=== PATIENT | female | born 1960 | race Caucasian/White ===

== ENCOUNTER 2019-12-19 19:09 | Observation (INO) | payer OTHER ==
[~2019-12-19] VITALS: Ht 172.7 cm; Wt 58.9 kg
[~2019-12-19 19:09] MED LIST: Macrodantin100 MG PO
[2019-12-19 19:52] LABS: BASOPHILS ABSOLUTE AUTO 0.02 K/mm3 (0.00-0.23); BASOPHILS PERCENT AUTO 0 % (0-2); EOSINOPHILS ABSOLUTE AUTO 0.02 K/mm3 (0.00-0.68); EOSINOPHILS PERCENT AUTO 0 % (0-6); Hematocrit 51.1 % (33.0-51.0); Hemoglobin 18.2 g/dL (11.5-16.0); IMMATURE GRAN ABSOLUTE AUTO 0.02 K/mm3 (0.00-0.10); IMMATURE GRAN PERCENT AUTO 0 % (0-1); LYMPHOCYTES ABSOLUTE AUTO 0.86 K/mm3 (0.84-5.20); LYMPHOCYTES PERCENT AUTO 12 % (21-46); MONOCYTES PERCENT AUTO 6 % (4-13); Mean Corpuscular HGB 33.8 pg (26.0-34.0); Mean Corpuscular HGB Conc 35.6 g/dL (31.5-36.5); Mean Corpuscular Volume 95 fL (80-100); Mean Platelet Volume 9.9 fL (9.1-12.4); NEUTROPHILS PERCENT AUTO 82 % (41-73); Platelet Count 289 K/mm3 (150-400); RDW Coefficient Variation 11.9 % (11.7-14.2); RDW Standard Deviation 42.3 fL (35.1-46.3); Red Blood Cell Count 5.39 M/mm3 (3.80-5.20); White Blood Cell Count 7.22 K/mm3 (4.00-11.30)
[2019-12-19 20:12] LABS: Alanine Aminotransfer (ALT/SGP 114 U/L (12-78); Alk Phos 93 U/L (50-136); Anion Gap 11 mmol/L (6-16); Aspartate Aminotrans (AST/SGOT 52 U/L (12-37); Bilirubin, Total 0.5 mg/dL (0.1-1.0); Blood Urea Nitrogen 21 mg/dL (8-24); Bun/Creatinine Ratio 50.5 (12.0-20.0); CO2, Blood 25 mmol/L (21-32); Calcium, Blood 9.8 mg/dL (8.5-10.1); Chloride, Blood 99 mmol/L (98-108); Creatinine, Blood 0.42 mg/dL (0.40-1.00); Globulin, Blood 4.1 g/dL (2.2-4.0); Glomerular Filtration Rate >60 (60-); Glucose, Blood 156 mg/dL (70-99); Potassium, Blood 2.8 mmol/L (3.5-5.5); Sodium, Blood 135 mmol/L (136-145); Total Protein, Blood 8.1 g/dL (6.4-8.2)
[2019-12-19 23:52] LABS: Source, Urine Catheter
[2019-12-19 23:57] LABS: Bilirubin, Urine Neg (Neg); Blood, Urine 1+ (Neg); Glucose Qualitative, Urine Neg (Neg); Ketones, Urine 4+ (Neg); Leukocyte Esterase, Urine 3+ (Neg); Nitrite, Urine Neg (Neg); Protein, Urine 2+ (Neg); Specific Gravity, Urine 1.025 (1.003-1.022); Urobilinogen, Urine NORM (Normal)
[2019-12-20 00:17] LABS: Appearance, Urine Hazy (Clear); Color, Urine Amber (P-Yellow)
[2019-12-20 00:18] LABS: Amorphous Light (0-Heavy); Bacteria Mod /hpf; Mucus Mod (0-Heavy); Squamous Epithelial Cells Mod /hpf (Few); White Blood Cells, Urine 25-50 /hpf (0-5)
[2019-12-20 01:07] LABS: Ethanol (Alcohol), Blood, Med <3 mg/dL; Magnesium, Blood 2.2 mg/dL (1.6-2.4); Salicylate 3.7 mg/dL (2.8-20.0)
[2019-12-20 01:23] LABS: Acetaminophen, Random <2.0 ug/mL (10.0-30.0)
--- NOTE | 2019-12-20 03:19 | NUR ---
Patient arrived via stretcher to room 330. Pt is able to follow commands and is calm and cooperative. Pt is oriented to self, did figure out she was in a hospital. Pt knows names of her children. Pt did not know month or year. Unable to answer health question with certainity. Pt assessment is otherwise negative. Bed alarm is on, IV fluids are as ordered. Pt is sleepy due to Ativan in ED, and previous encephalapathy. Oriented to call light and room. Will monitor closely.
[2019-12-20 05:09] LABS: BASOPHILS ABSOLUTE AUTO 0.02 K/mm3 (0.00-0.23); BASOPHILS PERCENT AUTO 0 % (0-2); EOSINOPHILS ABSOLUTE AUTO 0.03 K/mm3 (0.00-0.68); EOSINOPHILS PERCENT AUTO 1 % (0-6); Hematocrit 46.1 % (33.0-51.0); Hemoglobin 16.2 g/dL (11.5-16.0); IMMATURE GRAN ABSOLUTE AUTO 0.02 K/mm3 (0.00-0.10); IMMATURE GRAN PERCENT AUTO 0 % (0-1); LYMPHOCYTES ABSOLUTE AUTO 0.97 K/mm3 (0.84-5.20); LYMPHOCYTES PERCENT AUTO 15 % (21-46); MONOCYTES ABSOLUTE AUTO 0.61 K/mm3 (0.16-1.47); MONOCYTES PERCENT AUTO 9 % (4-13); Mean Corpuscular HGB 33.9 pg (26.0-34.0); Mean Corpuscular HGB Conc 35.1 g/dL (31.5-36.5); Mean Corpuscular Volume 96 fL (80-100); NEUTROPHILS ABSOLUTE AUTO 4.82 K/mm3 (1.96-9.15); NEUTROPHILS PERCENT AUTO 75 % (41-73); Platelet Count 241 K/mm3 (150-400); RDW Coefficient Variation 11.9 % (11.7-14.2); RDW Standard Deviation 42.6 fL (35.1-46.3); Red Blood Cell Count 4.78 M/mm3 (3.80-5.20); White Blood Cell Count 6.47 K/mm3 (4.00-11.30)
[2019-12-20 05:32] LABS: Alanine Aminotransfer (ALT/SGP 93 U/L (12-78); Albumin, Blood 3.4 g/dL (3.4-5.0); Albumin/Globulin Ratio 0.9 (0.8-1.8); Alk Phos 82 U/L (50-136); Anion Gap 6 mmol/L (6-16); Aspartate Aminotrans (AST/SGOT 44 U/L (12-37); Bilirubin, Total 0.3 mg/dL (0.1-1.0); Blood Urea Nitrogen 19 mg/dL (8-24); Bun/Creatinine Ratio 39.9 (12.0-20.0); CO2, Blood 26 mmol/L (21-32); Chloride, Blood 107 mmol/L (98-108); Creatinine, Blood 0.48 mg/dL (0.40-1.00); Globulin, Blood 3.9 g/dL (2.2-4.0); Glomerular Filtration Rate >60 (60-); Glucose, Blood 85 mg/dL (70-99); Potassium, Blood 3.6 mmol/L (3.5-5.5); Sodium, Blood 139 mmol/L (136-145); Total Protein, Blood 7.3 g/dL (6.4-8.2)
--- NOTE | 2019-12-20 10:23 | NUR ---
PER PATIENT CAN TALK TO DAUGHTER, BETH.
--- NOTE | 2019-12-20 15:29 | NUR ---
ALERT TO; SELF, TOWN,& FIRST WEEK OF . DOES NOT KNOW; WHY HERE, HOW SHE GOT HERE, OR THAT SHE IS IN HOSPITAL.
--- NOTE | 2019-12-20 15:56 | NUR ---
ALERT TO SELF. JUST SENT URINE SAMPLE. PER DAUGHTER, BETH, PT HAS NOT HAD ANY ETOH FOR 2 1/2 -3 WEEKS. PATIENT IN TRANSITIONAL CARE THRU BATTERED PERSONS. THIS AM ALERT TO; SELF, DATE, IN HOSPITAL AND AWARE DAUGHTER BROUGHT HER HERE. NOW ALERT TO; SELF, TOWN, FIRST WEEK OF AND IN HOSPITAL. CIWA =1. UNLABORED RESPIRATIONS. TELE ON AND SR PER TECH. WCTM.
[2019-12-20 16:08] LABS: Source, Urine Clean Catch
[2019-12-20 16:18] LABS: Appearance, Urine Hazy (Clear); Bilirubin, Urine Neg (Neg); Blood, Urine 1+ (Neg); Color, Urine Yellow (P-Yellow); Glucose Qualitative, Urine Neg (Neg); Ketones, Urine 3+ (Neg); Leukocyte Esterase, Urine 3+ (Neg); Nitrite, Urine Neg (Neg); Protein, Urine 2+ (Neg); Urobilinogen, Urine NORM (Normal)
[2019-12-20 16:36] LABS: White Blood Cells, Urine 25-50 /hpf (0-5)
[2019-12-20 16:37] LABS: Bacteria Many /hpf; Squamous Epithelial Cells Many /hpf (Few)
--- NOTE | 2019-12-21 03:37 | NUR ---
SHIFT SUMMARY DID NOT EAT MUCH OF HER DINNER LAST EVENING, VOICED SHE WASNT HUNGRY. IVF OF NS WITH 20 mEq of KCL INFUSING AT 125 ML/HR FOR HYDRATION. HAS BEEN RESTING QUIETLY WITH EFW INTERRUPTIONS SINCE HS. CALL LIGHT IN REACH
[2019-12-21 05:53] LABS: Alanine Aminotransfer (ALT/SGP 64 U/L (12-78); Albumin, Blood 2.5 g/dL (3.4-5.0); Albumin/Globulin Ratio 0.9 (0.8-1.8); Alk Phos 59 U/L (50-136); Anion Gap 6 mmol/L (6-16); Aspartate Aminotrans (AST/SGOT 35 U/L (12-37); Bilirubin, Total 0.3 mg/dL (0.1-1.0); Blood Urea Nitrogen 12 mg/dL (8-24); Bun/Creatinine Ratio 25.5 (12.0-20.0); CO2, Blood 24 mmol/L (21-32); Calcium, Blood 7.9 mg/dL (8.5-10.1); Chloride, Blood 110 mmol/L (98-108); Creatinine, Blood 0.47 mg/dL (0.40-1.00); Globulin, Blood 2.9 g/dL (2.2-4.0); Glomerular Filtration Rate >60 (60-); Glucose, Blood 76 mg/dL (70-99); Phosphorus, Blood 3.2 mg/dL (2.5-4.9); Potassium, Blood 3.7 mmol/L (3.5-5.5); Sodium, Blood 140 mmol/L (136-145); Total Protein, Blood 5.4 g/dL (6.4-8.2)
[2019-12-21] MEDS ORDERED: B-1100 M1 PO (11:46)
[2019-12-21] MEDS ORDERED: ONE DAILY ESS400 MCG PO (11:47)
[2019-12-21] MEDS ORDERED: CITA20 PO (11:47)
--- NOTE | 2019-12-21 12:53 | NUR ---
DISCHARGE INSTRUCTIONS REVIEWED WITH PT, IV DC'D INTACT, RX FAXED TO [facility]. SPOKE WITH DAUGHTER ON THE PHONE FOR UPDATE. AWAITING RIDE HOME AT THIS TIME. INFO GIVEN ON ANTIDEPRESSANT CELEXA WELL DEPRESSION.
--- NOTE | 2019-12-21 14:04 | NUR ---
PT DISCHARGED HOME WITH DAUGHTER AT 1348. DAUGHTER UPDATED ON PLAN. DAUGHTER CONCERNED THAT PT STILL HAS SOME CONFUSION BUT REPORTS MUCH BETTER. PT ESCORTED OUT VIA W/C.
--- NOTE | 2019-12-21 15:24 | NUR ---
DAUGHTER CALLED AFTER DISCHARGE AND WAS VERY UPSET THAT PT WAS DISCHARGED. SHE REPORTS PT IS UNABLE TO WALK AND THAT SHE HAS NO WHERE TO TAKE HER. SHE REPORTS THAT WE JUST DISCHARGED THE PT WITHOUT HAVING ANY ANSWERS. I SPOKE WITH DAUGHTER PRIOR TO DISCHARGE REGARDING THE DR'S FINDING AND RECOMMENDATIONS TO STOP DRINKING ALCOHOL, STAY HYDRATED AND STARTED ON ANTI DEPRESSANTS. PT DID AMBULATE TO THE BATHROOM TWICE THIS AM PER APLESH GARY, ANIMAL ECOLOGIST REPORTS PT WAS WEAK BUT ABLE TO AMBULATE IN WITH WALKER. DAUGHTER REPORTS PT WAS NOT ABLE TO AMBULATE TO THE CAR AND I INFORMED HER THAT WE ESCORT OUT IN A W/C FOR PT AT DISCHARGE. SHE CONT TO BE VERY UPSET AND STATES SHE DID NOT KNOW WHAT TO DO WITH HER MOTHER THAT SHE CANNOT GO INTO THE TRANSOTIONAL HOUSING DUE TO SECURITY REASONS. SHE ALSO REPORTS HER MOTHER IS STILL VERY CONFUSED BUT BETTER THAN WHEN SHE BROUGHT HER IN, PT WAS ABLE TO TELL ME THIS AM HER NAME, BIRTHDAY, AND STATE BUT WAS UNSURE OF TOWN THOUGHT SHE WAS MAYBE IN [place] WHICH IS WHERE SHE RECENTLY CAME FROM. PT WAS ALSO AWAKE ALL MORNING WITH NO COMPLAINTS.
== END 2019-12-21 13:48 | disposition home or self-care (01) ==
LOC: ER 19:09 → MEDS 19:10 → ER 12-20 00:51 → MEDS 12-20 00:51
PROVIDERS: Emergency Medicine; Internal Medicine; Physician Assistant; ADMIT Internal Medicine
DX: G93.41 Metabolic encephalopathy (principal); E87.1 Hypo-osmolality and hyponatremia; E87.6 Hypokalemia; E86.0 Dehydration; F32.9 Major depressive disorder, single episode, unspecified; F10.10 Alcohol abuse, uncomplicated; Y90.0 Blood alcohol level of less than 20 mg/100 ml; E87.2 Acidosis; Z79.899 Other long term (current) drug therapy; F17.210 Nicotine dependence, cigarettes, uncomplicated; N39.0 Urinary tract infection, site not specified
CPT/HCPCS: 36415; 70450; 80053; 81001; 82140; 83605; 83735; 84100; 85025; 87077; 87086; 87186; 93005; 93010; 96361; 96365; 96368; 96372; 96375; 96376; 99285-25; G0378; G0480; J0696; J1650; J2060; J3411; J3475; J3480; J7030; J7042

== ENCOUNTER 2020-04-05 09:27 | Emergency (ER) | payer OTHER ==
[~2020-04-05] VITALS: Ht 172.7 cm; Wt 63.5 kg
[~2020-04-05 09:27] MED LIST changes: +B-1100 M1 PO; +CITA20 PO; +ONE DAILY ESS400 MCG PO
== END 2020-04-05 10:50 | disposition home or self-care (01) ==
LOC: ER 09:27
DX: F32.9 Major depressive disorder, single episode, unspecified (principal); F41.9 Anxiety disorder, unspecified; R41.3 Other amnesia; Z87.891 Personal history of nicotine dependence
CPT/HCPCS: 99284

== ENCOUNTER → 2023-03-14 | Outpatient (CLI) | payer OTHER ==
[~2023-03-14] MED LIST changes: +QUETIAPINE FUMA50 M2 PO; +SEROQUEL25 MG PO
[2023-03-14 20:45] LABS: BASOPHILS ABSOLUTE AUTO 0.04 K/mm3 (0.00-0.23); BASOPHILS PERCENT AUTO 1 % (0-2); EOSINOPHILS ABSOLUTE AUTO 0.24 K/mm3 (0.00-0.68); EOSINOPHILS PERCENT AUTO 4 % (0-6); Hematocrit 43.6 % (33.0-51.0); Hemoglobin 14.5 g/dL (11.5-16.0); IMMATURE GRAN ABSOLUTE AUTO 0.01 K/mm3 (0.00-0.10); IMMATURE GRAN PERCENT AUTO 0 % (0-1); LYMPHOCYTES PERCENT AUTO 34 % (21-46); MONOCYTES PERCENT AUTO 7 % (4-13); Mean Corpuscular HGB 29.7 pg (26.0-34.0); Mean Corpuscular HGB Conc 33.3 g/dL (31.5-36.5); Mean Corpuscular Volume 89 fL (80-100); Mean Platelet Volume 10.4 fL (9.1-12.4); NEUTROPHILS ABSOLUTE AUTO 3.18 K/mm3 (1.96-9.15); NEUTROPHILS PERCENT AUTO 54 % (41-73); Platelet Count 239 K/mm3 (150-400); RDW Coefficient Variation 13.1 % (11.7-14.2); Red Blood Cell Count 4.88 M/mm3 (3.80-5.20); White Blood Cell Count 5.87 K/mm3 (4.00-11.30)
[2023-03-14 21:19] LABS: Alanine Aminotransfer (ALT/SGP 44 U/L (12-78); Albumin, Blood 3.8 g/dL (3.4-5.0); Alk Phos 115 U/L (50-136); Anion Gap 6 mmol/L (6-16); Aspartate Aminotrans (AST/SGOT 21 U/L (12-37); Bilirubin, Total 0.5 mg/dL (0.1-1.0); Blood Urea Nitrogen 6 mg/dL (8-24); Bun/Creatinine Ratio 10.2 (12.0-20.0); CHOL/HDL RATIO 4.9; CO2, Blood 25 mmol/L (21-32); Calcium, Blood 8.8 mg/dL (8.5-10.1); Chloride, Blood 109 mmol/L (98-108); Cholesterol 269 mg/dL (50-200); Creatinine, Blood 0.59 mg/dL (0.40-1.00); Globulin, Blood 3.9 g/dL (2.2-4.0); Glomerular Filtration Rate 101 (60-); Glucose, Blood 101 mg/dL (70-99); HDL Cholesterol 55 mg/dL (>39); LDL/HDL RATIO 3.2; Low Density Lipoprotein Chol 173 mg/dL (0-110); Potassium, Blood 3.8 mmol/L (3.5-5.5); Sodium, Blood 140 mmol/L (136-145); Total Protein, Blood 7.7 g/dL (6.4-8.2); Triglycerides 203 mg/dL (30-160); Very Low Density Lipoprot Chol 40 mg/dL (6-32)
== END ==
LOC: LAB 17:33 → LAB SHORT 17:33
PROVIDERS: Family Medicine
DX: Z13.220 Encounter for screening for lipoid disorders (principal); Z79.899 Other long term (current) drug therapy
CPT/HCPCS: 80053; 80061; 85025

== ENCOUNTER 2023-05-01 12:06 | Emergency (ER) | payer OTHER ==
[~2023-05-01] VITALS: Ht 172.7 cm; Wt 72.6 kg
[2023-05-01 15:12] LABS: BASOPHILS ABSOLUTE AUTO 0.02 K/mm3 (0.00-0.23); BASOPHILS PERCENT AUTO 0 % (0-2); EOSINOPHILS PERCENT AUTO 4 % (0-6); Hematocrit 42.7 % (33.0-51.0); Hemoglobin 14.1 g/dL (11.5-16.0); IMMATURE GRAN ABSOLUTE AUTO 0.01 K/mm3 (0.00-0.10); IMMATURE GRAN PERCENT AUTO 0 % (0-1); LYMPHOCYTES ABSOLUTE AUTO 2.04 K/mm3 (0.84-5.20); LYMPHOCYTES PERCENT AUTO 28 % (21-46); MONOCYTES ABSOLUTE AUTO 0.62 K/mm3 (0.16-1.47); MONOCYTES PERCENT AUTO 9 % (4-13); Mean Corpuscular HGB 29.5 pg (26.0-34.0); Mean Corpuscular Volume 89 fL (80-100); Mean Platelet Volume 9.5 fL (9.1-12.4); NEUTROPHILS ABSOLUTE AUTO 4.21 K/mm3 (1.96-9.15); NEUTROPHILS PERCENT AUTO 59 % (41-73); Platelet Count 204 K/mm3 (150-400); RDW Coefficient Variation 13.2 % (11.7-14.2); RDW Standard Deviation 43.6 fL (35.1-46.3); Red Blood Cell Count 4.78 M/mm3 (3.80-5.20)
[2023-05-01 15:34] LABS: Albumin, Blood 3.4 g/dL (3.4-5.0); Albumin/Globulin Ratio 0.8 (0.8-1.8); Bilirubin, Total 0.6 mg/dL (0.1-1.0); Bun/Creatinine Ratio 12.1 (12.0-20.0); Calcium, Blood 8.9 mg/dL (8.5-10.1); Creatinine, Blood 0.58 mg/dL (0.40-1.00); Globulin, Blood 4.1 g/dL (2.2-4.0); Potassium, Blood 4.3 mmol/L (3.5-5.5); Total Protein, Blood 7.5 g/dL (6.4-8.2)
[2023-05-01 15:48] LABS: Influenza A, PCR NEGATIVE (NEGATIVE); Influenza B, PCR NEGATIVE (NEGATIVE); Resp Syncytial Virus, PCR NEGATIVE (NEGATIVE); SARS-Cov-2 (COVID-19) PCR, MMC NEGATIVE (NEGATIVE)
[2023-05-01 15:58] LABS: Source, Urine Clean Catch
[2023-05-01 16:04] LABS: Appearance, Urine Cloudy (Clear); Bilirubin, Urine Neg (Neg); Blood, Urine 2+ (Neg); Color, Urine Yellow (P-Yellow); Glucose Qualitative, Urine Neg (Neg); Ketones, Urine 3+ (Neg); Leukocyte Esterase, Urine 3+ (Neg); Nitrite, Urine Neg (Neg); Protein, Urine 1+ (Neg); Urobilinogen, Urine NORM (Normal)
[2023-05-01 16:11] LABS: Bacteria Many /hpf; Squamous Epithelial Cells Many /hpf (Few); White Blood Cells, Urine 25-50 /hpf (0-5)
[2023-05-01 16:12] LABS: Transitional Epithelial Cells Rare /hpf (0-Rare)
[2023-05-01] MEDS ORDERED: CEPH500 PO (16:51)
[2023-05-01 20:37] VITALS: BP 116/77
== END 2023-05-01 20:15 | disposition home or self-care (01) ==
LOC: ER 12:06
PROVIDERS: Emergency Medicine
DX: N30.00 Acute cystitis without hematuria (principal); F17.210 Nicotine dependence, cigarettes, uncomplicated; R56.9 Unspecified convulsions
CPT/HCPCS: 0241U; 70450; 71045; 80053; 81001; 85025; 87086; 99284-25

== ENCOUNTER → 2025-01-24 | Outpatient (CLI) | payer MEDICARE, OTHER ==
[~2025-01-24] MED LIST changes: +CEPH500 PO
[2025-01-25 08:25] LABS: Bilirubin, Urine Neg (Neg); Color, Urine Yellow (P-Yellow); Glucose Qualitative, Urine Neg (Neg); Ketones, Urine Neg (Neg); Leukocyte Esterase, Urine Neg (Neg); Protein, Urine Neg (Neg); Specific Gravity, Urine 1.010 (1.003-1.022); Urobilinogen, Urine NORM (Normal)
== END ==
LOC: LAB SHORT 12:00 → LAB 12:00
PROVIDERS: Nurse Practitioner Family
DX: N39.0 Urinary tract infection, site not specified (principal); A54.01 Gonococcal cystitis and urethritis, unspecified; A59.00 Urogenital trichomoniasis, unspecified
CPT/HCPCS: 81003